=== PATIENT | female | born 1995 | race Caucasian/White ===

== ENCOUNTER → 2019-05-22 | Outpatient (CLI) | payer BC ==
--- NOTE | 2019-05-22 10:36 | NM ---
Nuclear medicine hepatobiliary scan. HISTORY: Pain. DOSAGE: The patient received 8 ounces of ensure plus and 4.8 mCi of Technetium 99m Choletec. FINDINGS: There is normal hepatic extraction. The gallbladder is seen by 20 minutes. There is bilia ry to bowel clearance by 60 minutes. Ejection fraction is 81%. IMPRESSION: 1. No evidence of cholecystitis. 2. Ejection fraction of 81%. This can occasionally be seen with hyperdynamic gallbladder.
== END | disposition home or self-care (01) ==
LOC: RADNMMAIN 07:11
PROVIDERS: ATTEND Family Medicine
DX: K82.8 Other specified diseases of gallbladder (principal); R11.2 Nausea with vomiting, unspecified
CPT/HCPCS: 78226; A9537

== ENCOUNTER 2020-06-29 18:09 | Emergency (ER) | payer BC ==
[2020-06-29 18:14] VITALS: RESP 18
[2020-06-29] MEDS ORDERED: AMOXIC-POT CLAV 875-125MG 1 EACH TAB PO STA (18:23)
[2020-06-29] MEDS ORDERED: RABIES VACCINE (PCEC) 2.5 UNIT KIT IM ONE (18:23)
[2020-06-29] MEDS ORDERED: RABIES IMMUNE GLOB 300 UNIT/ML 1 ML VIAL IM ONE (18:23)
--- NOTE | 2020-06-29 18:25 | ED ---
Animal Bite HPI - General Chief Complaint: Animal Bite Stated Complaint: cat bite Time Seen by Provider: 06/29/20 18:17 Source: patient Mode of arrival: ambulatory Limitations: no limitations - History of Present Illness Initial Comments: Patient is a 24-year-old female presenting to emergency by with a chief complaint of a cat bite. Patient states this was her barn cat and she is suspecting the cat has rabies. Patient states the bite is located on the posterior aspect of the left lower leg. Patient states that incident occurred a few hours prior to arrival. Patient states there is minimal bleeding. She denies any blood thinners. Denies any swelling or erythema at the site of injury. She is not immune compromised. Tetanus up-to-date. - Related Data Previous Rx's Medication Instructions Recorded Amoxicillin/Potassium Clav 1 tab PO Q12HR #20 tab 06/29/20 [Augmentin 875-125 Tablet] Fluconazole [Diflucan] 150 mg PO ONCE #2 tab 06/29/20 Allergies Allergy/AdvReac Type Severity Reaction Status Date / Time No Known Allergies Allergy Verified 06/29/20 18:41 Review of Systems ROS Statement: Those systems with pertinent positive or pertinent negative responses have been documented in the HPI. ROS Other: All systems not noted in ROS Statement are negative. Past Medical History Past Medical History: No Reported History History of Any Multi-Drug Resistant Organisms: None Reported Past Surgical History: Cholecystectomy Past Psychological History: Depression Smoking Status: Never smoker Past Alcohol Use History: Occasional Past Drug Use History: Marijuana General Exam Limitations: no limitations General appearance: alert, in no apparent distress Head exam: Present: atraumatic, normocephalic, normal inspection Eye exam: Present: normal appearance, PERRL, EOMI Pupils: Present: normal accommodation ENT exam: Present: normal exam, normal oropharynx, mucous membranes moist, TM's normal bilaterally, normal external ear exam Neck exam: Present: normal inspection, full ROM Respiratory exam: Present: normal lung sounds bilaterally. Absent: respiratory distress, wheezes Cardiovascular Exam: Present: regular rate, normal rhythm, normal heart sounds Extremities exam: Present: full ROM, normal capillary refill, other (+2 dorsalis pedis and posterior tibial bilateral.). Absent: normal inspection (2 small puncture wounds on the left calf), tenderness Back exam: Present: normal inspection, full ROM. Absent: tenderness Neurological exam: Present: alert, oriented X3, normal gait Psychiatric exam: Present: normal affect, normal mood Skin exam: Present: warm, dry, intact, normal color Course Vital Signs 06/29/20 18:10 Temperature 98.8 F Pulse Rate 76 Respiratory 18 Rate Blood Pressure 117/80 O2 Sat by Pulse 100 Oximetry Medical Decision Making - Medical Decision Making Patient is 24-year-old female presenting to the emergency room with a chief complaint of Back. 2 small puncture wound to the left calf. Patient started on Augmentin. She was also given rabies immunoglobulin at the bite site. Patient was also started on rabies vaccine advised to return to emergency department at day 3, 7 and 14. Patient advised on the importance of coming back to emergency department to receive the full course of the rabies vaccine. Patient was discharged with a 10 day course of Augmentin. Patient also given Diflucan per her request because she is known to develop yeast infections after antibiotic use. Return parameters were thoroughly discussed with patient is understanding and agreeable. Case discussed with physician. Disposition Clinical Impression: Cat bite, Bite by animal, Rabies contact Disposition: HOME SELF-CARE Condition: Stable Instructions (If sedation given, give patient instructions): Animal Bite (ED), Rabies (ED) Additional Instructions: Return for repeat vaccinations on the 3, 7 and 14. Take prescribed medication as directed. Prescriptions: Amoxicillin/Potassium Clav [Augmentin 875-125 Tablet] 1 tab PO Q12HR #20 tab Fluconazole [Diflucan] 150 mg PO ONCE #2 tab Is patient prescribed a controlled substance at d/c from ED?: No Referrals: Sussy Colby DO [Primary Care Provider] - 1-2 days Time of Disposition: 18:25
[2020-06-29] MEDS ORDERED: RABIES IMMUNE GLOB 300 UNIT/ML 5 ML VIAL IM ONE (18:30)
[2020-06-29 19:49] VITALS: BP 127/77; PULSE 78; TEMP 98.4
== END 2020-06-29 19:48 | disposition home or self-care (01) ==
LOC: EC 18:09
DX: S81.832A Puncture wound without foreign body, left lower leg, initial encounter (principal); Z23 Encounter for immunization; Z20.3 Contact with and (suspected) exposure to rabies; W55.01XA Bitten by cat, initial encounter
CPT/HCPCS: 90375; 90471; 90675; 96372; 99283